=== PATIENT | female | born 1985 | race Caucasian/White ===

== ENCOUNTER 2016-07-19 10:21 | Emergency (ER) | payer MEDICAID, OTHER ==
[~2016-07-19] VITALS: Ht 157.5 cm; Wt 120.0 kg
[~2016-07-19 10:21] MED LIST: DEC1 PO; TEMA15CA PO; TOPI25TA38 PO
[2016-07-19 10:24] VITALS: Ht 157.5 cm; Wt 120.0 kg
[2016-07-19] MEDS ORDERED: ONDANSETRON 4 MG INJ IV STA (11:15)
[2016-07-19] MEDS ORDERED: KETOROLAC 30 MG INJ IV STA (11:15)
[2016-07-19] MEDS ORDERED: SOD CHLORIDE 0.9% 1,000 ML IV STA (11:15)
[2016-07-19 11:51] LABS: ADD SCAN DIFF NO
[2016-07-19 12:22] LABS: ALBUMIN 4.5 g/dl (3.3-4.9)
[2016-07-19 12:23] LABS: POTASSIUM 4.6 mmol/L (3.5-5.1)
[2016-07-19 12:25] LABS: BASOPHIL # 0.1 10^3/ul (0.0-0.1); BASOPHILS % 0.7 % (0.0-2.0); EOSINOPHILS # 0.1 10^3/ul (0.0-0.5); EOSINOPHILS % 1.3 % (0.0-7.0); HEMOGLOBIN 11.9 g/dl (12.0-16.0); LYMPHOCYTES # 3.5 10^3/ul (0.8-2.9); LYMPHOCYTES % 37.2 % (15.0-51.0); MEAN CORPUSCULAR HEMOGLOBIN 29.1 pg (29.0-33.0); MEAN CORPUSCULAR HGB CONC 33.1 g/dl (32.0-37.0); MEAN PLATELET VOLUME 10.2 fl (7.4-10.4); MONOCYTE # 0.5 10^3/ul (0.3-0.9); MONOCYTES % 5.4 % (0.0-11.0); NEUTROPHIL # 5.2 10^3/ul (1.6-7.5); NEUTROPHILS % 55.3 % (39.0-77.0); PLATELET COUNT 331 10^3/UL (140-415); RED BLOOD COUNT 4.09 10^6/ul (4.20-5.40); RED CELL DISTRIBUTION WIDTH 13.4 % (11.5-14.5); WHITE BLOOD COUNT 9.4 10^3/ul (4.8-10.8)
[2016-07-19 12:25] LABS: CREATININE 0.72 mg/dl (0.44-1.00)
[2016-07-19 12:26] LABS: ALBUMIN/GLOBULIN RATIO 1.04; BILIRUBIN,INDIRECT 0.5 mg/dl (0-1.1); BILIRUBIN,TOTAL 0.5 mg/dl (0.2-1.3); CALCIUM 9.4 mg/dl (8.4-10.2); TOTAL PROTEIN 8.8 g/dl (6.1-8.1)
--- NOTE | 2016-07-19 12:26 | RADRPT ---
PROCEDURE: US Pelvis CLINICAL INDICATION: pelvic pain TECHNIQUE: Multiple sonographic images of the pelvis were obtained utilizing a transabdominal and endovaginal technique. The images were reviewed on a PACS workstation. COMPARISON: None. LMP: 06/04/2016 FINDINGS: The uterus measures 6.8 x 3.8 x 4.2 cm. The endometrial echo complex measures 11 mm in thickness. The junctional zone between the endometrium and myometrium is somewhat indistinct. Several sub-cent imeter Nabothian cysts are identified. The right ovary measures 4.5 x 3.3 x 4.0 cm. The left ovary is not visualized. There is normal vascu lar flow in the right ovary. No significant ovarian lesions are seen. No significant pelvic free fluid is identified. IMPRESSION: The junctional zone between the endometrium and myometrium is somewhat indistinct. Correlation for adenomyosis is recommended. Nonvisualization of the left ovary. RPTAT: EE Physician Arthur Date Time Electronically viewed and signed by Physician Arthur on 07/19/2016 12:26 /
[2016-07-19 12:52] LABS: URINE BLOOD (Dip) POC 3+ (NEGATIVE)
[2016-07-19] MEDS ORDERED: NAPR-260 PO (13:01)
--- NOTE | 2016-07-19 13:29 | ERD ---
ER Documentation Chief Complaint Date/Time DATE: 07/19/16 TIME: 13:21 Chief Complaint pelvic pain x 3 days HPI Patient is a 31 year old female with a past medical history of PCOS who presents to the ED with pelvic pain on and off x 2 weeks. She states that she has had her menses for the last 2 months, on and off. She states that she normally has irregular bleeding and periods. She states that 3 weeks ago she developed bilateral pelvic pain, pain she has experienced int eh past but in the past 2 weeks it has gotten worse. She also has low back pain associated with her pelvic pain. She complains of urgency and frequency with no dysuria. She states that she is not sexually active and has no history of STDS. She has never been before. She states that she is planning on seeing a line up examiner next month since she was waiting on her insurance authorization. She denies abdominal pain, nausea, vomiting or diarrhea. She denies headache, dizziness, neck pain or neck stiffness. She denies abnormal vaginal discharge. She denies chest pain, cough, shortness of breath or difficulty breathing. Denies leg pain or leg swelling. Denies recent travel or recent surgeries. No other complaints ROS All systems reviewed and are negative except as per history of present illness. Medications Home Meds Active Scripts Naproxen* (Naprosyn*) 500 Mg Tablet, 500 MG PO BID Y for PAIN AND/OR INFLAMMATION, #30 TAB Prov:HA FRAGA PA-C 07/19/16 Dexamethasone* (Decadron*) 1 Mg Tab, 1 MG PO TID for 2 Days, TAB Prov:SANDY ESPITIA NP 02/20/16 Temazepam* (Temazepam*) 15 Mg Capsule, 15 MG PO HS Y for INSOMNIA, #10 CAP Prov:SANDY ESPITIA NP 02/20/16 Topiramate* (Topamax*) 25 Mg Tablet, 25 MG PO BID for 4 Days, TAB Topamax 25 mg po BID x 4days, then Topamax 50 mg po BID x 7days, then Topamax 75 mg po BID x 7days, then Topamax 10 mg po BID Prov:SANDY ESPITIA NP 02/20/16 Allergies Allergies: Coded Allergies: No Known Allergy (Unverified , 02/15/16) PMhx/Soc History of Surgery: No Anesthesia Reaction: No Hx Neurological Disorder: No Hx Respiratory Disorders: No Hx Cardiac Disorders: No Hx Psychiatric Problems: No Hx Miscellaneous Medical Probl: Yes (pcos) Hx Alcohol Use: No Hx Substance Use: No Hx Tobacco Use: No Physical Exam Vitals Vital Signs Date Time Temp Pulse Resp B/P Pulse Ox O2 Delivery O2 Flow Rate FiO2 07/19/16 10:24 97.5 77 18 131/74 97 Physical Exam GENERAL: Well-developed, well-nourished female. Appears in no acute distress. HEAD: Normocephalic, atraumatic. EYES: Pupils are equally reactive bilaterally. EOMs grossly intact. No conjunctival erythema. ENT: Moist mucous membranes. No uvula deviation. No kissing tonsils. No exudates. NECK: Supple. No lymphadenopathy or thyromegaly. No meningismus. negative kernig. negative brudinski. hirsutism. LUNG: Clear to auscultation bilaterally. No rhonchi, wheezing, rales or coarse breath sounds. HEART: Regular rate and rhythm. No murmurs, rubs or gallops. ABDOMEN: No scars, ecchymosis or rashes noted. Soft, nontender, and nondistended. Positive bowel sounds in all four quadrants. No rebound tenderness , no guarding. (-) McBurneys point tenderness. No CVA tenderness. Tender in her bilateral pelvic area. BACK: No midline tenderness. Extremities: Equal pulses bilaterally. No peripheral clubbing, cyanosis or edema. No unilateral leg swelling. NEUROLOGIC: Alert and oriented. Moving all four extremities. 5/5 strength in all extremities. Normal speech. Steady gait. SKIN: Normal color. Warm and dry. No rashes or lesions. Capillary refill < 2 seconds Result Diagram: 07/19/16 1220 07/19/16 1130 Results 24 hrs Laboratory Tests Test 07/19/16 11:30 07/19/16 12:20 07/19/16 12:54 Sodium Level 140mmol/L Potassium Level 4.6mmol/L Chloride Level 104mmol/L Carbon Dioxide Level 24mmol/L Anion Gap 17 Blood Urea Nitrogen 11mg/dl Creatinine 0.72mg/dl Glucose Level 106mg/dl Calcium Level 9.4mg/dl Total Bilirubin 0.5mg/dl Direct Bilirubin 0.00mg/dl Indirect Bilirubin 0.5mg/dl Aspartate Amino Transf (AST/SGOT) 38IU/L Alanine Aminotransferase (ALT/SGPT) 22IU/L Alkaline Phosphatase 86IU/L Total Protein 8.8g/dl Albumin 4.5g/dl Globulin 4.30g/dl Albumin/Globulin Ratio 1.04 Lipase 80U/L White Blood Count 9.410^3/ul Red Blood Count 4.0910^6/ul Hemoglobin 11.9g/dl Hematocrit 36.0% Mean Corpuscular Volume 88.0fl Mean Corpuscular Hemoglobin 29.1pg Mean Corpuscular Hemoglobin Concent 33.1g/dl Red Cell Distribution Width 13.4% Platelet Count 86197^3/UL Mean Platelet Volume 10.2fl Neutrophils % 55.3% Lymphocytes % 37.2% Monocytes % 5.4% Eosinophils % 1.3% Basophils % 0.7% Nucleated Red Blood Cells % 0.0/100WBC Neutrophils # 5.210^3/ul Lymphocytes # 3.510^3/ul Monocytes # 0.510^3/ul Eosinophils # 0.110^3/ul Basophils # 0.110^3/ul Nucleated Red Blood Cells # 0.010^3/ul Bedside Urine pH (LAB) 6.5 Bedside Urine Protein (LAB) 1+ Bedside Urine Glucose (UA) Negative Bedside Urine Ketones (LAB) Negative Bedside Urine Blood 3+ Bedside Urine Nitrite (LAB) Negative Bedside Urine Leukocyte Esterase (L Negative Current Medications Medications (Trade) Dose Ordered Sig/Ted Route PRN Reason Start Time Stop Time Status Last Admin Dose Admin Sodium Chloride (NS) 1,000 ml @ 1,000 mls/hr Q1H STAT IV 07/19/16 11:15 07/19/16 12:14 DC 07/19/16 11:26 Ondansetron HCl (Zofran Inj) 4 mg ONCE STAT IV 07/19/16 11:15 07/19/16 11:18 DC 07/19/16 11:26 Ketorolac Tromethamine (Toradol) 30 mg ONCE STAT IV 07/19/16 11:15 07/19/16 11:18 DC 07/19/16 11:26 Procedures/MDM ER COURSE: I kept the patient and/or family informed of laboratory and diagnostic imaging results throughout the emergency room course. EKG, MONITORS, & DIAGNOSTIC IMAGING: [place] [id number] Radiology Main Line: [phone] DIAGNOSTIC IMAGING REPORT Patient: FRANCINE ALEX : 1985 Age: 31 Sex: F MR #: [id number] DOS: 07/19/16 1124 Ordering MD: HA FRAGA PA-C Location: [facility] Room/Bed: PROCEDURE: US Pelvis CLINICAL INDICATION: pelvic pain TECHNIQUE: Multiple sonographic images of the pelvis were obtained utilizing a transabdominal and endovaginal technique. The images were reviewed on a PACS workstation. COMPARISON: None. LMP: 06/04/2016 FINDINGS: The uterus measures 6.8 x 3.8 x 4.2 cm. The endometrial echo complex measures 11 mm in thickness. The junctional zone between the endometrium and myometrium is somewhat indistinct. Several sub-centimeter Nabothian cysts are identified. The right ovary measures 4.5 x 3.3 x 4.0 cm. The left ovary is not visualized. There is normal vascular flow in the right ovary. No significant ovarian lesions are seen. No significant pelvic free fluid is identified. IMPRESSION: The junctional zone between the endometrium and myometrium is somewhat indistinct. Correlation for adenomyosis is recommended. Nonvisualization of the left ovary. RPTAT: EE Physician Arthur Date Time Electronically viewed and signed by Physician Arthur on 07/19/2016 12:26 RA/ CC: HA FRAGA PA-C MEDICATIONS: Fluids, Zofran, Toradol 30 mg Iv. Tolerated well with no adverse reaction LAB INTERPRETATION: CBC showed no evidence of systemic infection or severe anemia. CMP showed no evidence of electrolyte abnormalities, severe acidosis, alkalosis, renal failure , or liver disease. Lipase showed no evidence of acute pancreatitis. UA showed no evidence of leukocytes, nitrites, showed 3+ hemoglobin urine test was negative. MEDICAL DECISION MAKING: This is a 31-year-old who presents with pelvic pain on and off 3 weeks and irregular.. Vital signs were reviewed. Patient is afebrile. Patient is not hypoxic. Is not toxic or ill-appearing. Her ultrasound is read by radiologist shows likely adenomyosis. Low suspicion for ovarian torsion, PID, tuboovarian abscess, ectopic , bowel obstruction, pyelonephritis, UTI, appendicitis , cervicitis, septic , molar , HELLP syndrome, preeclampsia, eclampsia, placenta previa, placenta abruptia, endomitritis, endometriosis. I reexamined patient after administration of medication and she stated improvement in symptoms and was ready to be discharged. DISCHARGE: At this time, patient is stable for discharge and outpatient management with no new complaints during the ER course. Patient was sent home with Sage for pain, copy of her imaging report and to follow-up with line up examiner.. Patient will be discharged home with instructions to recheck for new or worsening symptoms such as fever, nausea, weakness, LOC and to follow up with primary care in the next 1-2 days. Patient was advised to return to the ER for any new or worsening symptoms. Plan was discussed and patient and/or family understands and agrees. Home instructions were given. Departure Diagnosis: Primary Impression: Pelvic pain Condition: Stable Patient Instructions: When Your Teenager Has Polycystic Ovary Syndrome (PCOS), Pelvic Pain, Unknown Cause Additional Instructions: Call your primary care doctor TOMORROW for an appointment during the next 1-2 days.See the doctor sooner or return here if your condition worsens before your appointment time. HA FRAGA PA-C July 19, 2016 13:29
== END 2016-07-19 13:29 | disposition home or self-care (01) ==
LOC: FTE 10:21
DX: R10.2 Pelvic and perineal pain (principal)
CPT/HCPCS: 76830; 76856; 80053; 81003; 83690; 85025; J1885; J2405; J7030

== ENCOUNTER 2017-12-10 12:17 | Emergency (ER) | END 2017-12-10 13:18 | disposition home or self-care (01) ==

== ENCOUNTER 2017-12-15 17:12 | Emergency (ER) | END 2017-12-15 21:33 | disposition home or self-care (01) ==

== ENCOUNTER 2018-11-04 18:04 | Emergency (ER) | payer OTHER ==
[~2018-11-04] VITALS: Ht 157.5 cm; Wt 130.0 kg
[~2018-11-04 18:04] MED LIST changes: +BACL10TA PO; +CYCL10TA7 PO; +HYDR-4011 PO; +IBUP-1542 PO; +MED4DP PO; +MORP15TA92 PO; +NAPR-985 PO; +PRED20TA PO; +TOPI25TA PO; -TOPI25TA38 PO
[2018-11-04 18:12] VITALS: Ht 157.5 cm; Wt 130.0 kg
[2018-11-04] MEDS ORDERED: predniSONE 20 MG TAB PO ONE (20:00)
[2018-11-04] MEDS ORDERED: morphine LIQ (10 MG/5 ML) CUP PO ONE (20:00)
[2018-11-04 22:40] VITALS: BP 160/94; PULSE 87; RESP 18
== END 2018-11-04 22:41 | disposition home or self-care (01) ==
LOC: FTE 18:04
DX: M51.34 Other intervertebral disc degeneration, thoracic region (principal); E66.01 Morbid (severe) obesity due to excess calories; Z68.43 Body mass index [BMI] 50.0-59.9, adult
CPT/HCPCS: 72128; 81003; 81025; J7512; Z7502; Z7610